=== PATIENT | male | born 1950 | race Two or more races ===

== ENCOUNTER 2021-10-27 10:08 | Emergency (ER) | payer OTHER ==
[~2021-10-27] VITALS: Ht 177.8 cm; Wt 150.6 kg
[2021-10-27 10:09] VITALS: BP 167/84
[2021-10-27] MEDS ORDERED: IBUP800T27 PO (11:39)
== END 2021-10-27 11:49 | disposition home or self-care (01) ==
LOC: ER 10:08
DX: M19.041 Primary osteoarthritis, right hand (principal); I11.0 Hypertensive heart disease with heart failure; I50.9 Heart failure, unspecified; Z90.49 Acquired absence of other specified parts of digestive tract; Z79.1 Long term (current) use of non-steroidal anti-inflammatories (NSAID)
CPT/HCPCS: 29125; 73130

== ENCOUNTER 2023-12-12 09:56 | Inpatient (IN) | payer OTHER ==
[~2023-12-12] VITALS: Ht 177.8 cm; Wt 137.7 kg
[2023-12-12] VITALS (10 sets, daily range): BP systolic 94–114; BP diastolic 48–61; PULSE 60–83; RESP 10–25; TEMP 98; O2SAT 2–97
[~2023-12-12 09:56] MED LIST: IBUP-1456 PO
[2023-12-12 10:30] LABS: Urine Bacteria None Seen /hpf (None Seen)
[2023-12-12 10:33] LABS: Basophils # (auto) 0.1 10 ^3/uL (0-0.2); Basophils % (auto) 0.6 % (0.0-2.0); Eosinophils # (auto) 0.1 10 ^3/uL (0-0.8); Eosinophils % (auto) 0.8 % (0.0-7.0); Hematocrit 47.4 % (41.0-53.0); Lymphocytes # (auto) 1.1 10 ^3/uL (0.4-5.4); Lymphocytes % (auto) 9.4 % (10.0-50.0); Mean Corpuscular Hemoglobin 30.2 pg (28.0-32.0); Mean Corpuscular Hgb Conc. 33.7 g/dL (32.0-36.0); Mean Corpuscular Volume 89.5 fL (80.0-100.0); Monocytes # (auto) 0.9 10 ^3/uL (0-1.3); Monocytes % (auto) 8.1 % (0.0-12.0); Neutrophils # (auto) 9.2 10 ^3/uL (1.6-8.6); Neutrophils % (auto) 81.1 % (37.0-80.0); Nucleated Red Blood Cells % 0.1 %; Red Cell Distribution Width 14.8 % (11.8-14.3); White Blood Cell 11.4 10^3/uL (4.4-10.8)
[2023-12-12 10:49] LABS: INR 1.04 (0.9-1.15); Partial Thromboplastin Time 24.5 SEC (24.5-34.5)
[2023-12-12 10:50] LABS: Urine Blood Negative /uL (Negative); Urine Clarity Clear (Clear); Urine Color Yellow (Yellow); Urine Hyaline Cast FEW /lpf (0 - 2); Urine Mucus FEW (None Seen); Urine Protein, UAD TRACE (Negative); Urine Specific Gravity 1.027 (1.001-1.035); Urine Urobilinogen 2 mg/dL (Negative); Urine WBC 1 /hpf (0 - 3); Urine pH 5.5 (5.0-9.0)
[2023-12-12 10:52] LABS: Alanine Aminotransferase 29 U/L (7-40); Alkaline Phosphatase 133 U/L (46-116); Anion Gap 7 (5-15); Aspartate Aminotransferase 44 U/L (13-40); BUN/Creatinine Ratio 10.8 (10.0-20.0); Blood Urea Nitrogen 8 mg/dL (9-23); Calcium 9.8 mg/dL (8.5-10.1); Carbon Dioxide 25 mmol/L (20-30); Chloride 106 mmol/L (98-107); Glucose 161 mg/dL (74-106); Magnesium 1.9 mg/dL (1.6-2.6); Potassium 3.9 mmol/L (3.5-5.1); Sodium 138 mmol/L (136-145)
[2023-12-12 10:53] LABS: Albumin 4.2 g/dL (3.2-4.8); Bilirubin, Total 0.6 mg/dL (0.2-1.0); Total Protein 6.7 g/dL (5.7-8.2)
[2023-12-12] MEDS: ASPirin 81 mg TAB PO ONE (11:07)
[2023-12-12] MEDS: HEPARIN SODIUM (PORCINE) 5000 UNITS/ML 1ML VIAL IV ONE (12:15)
[2023-12-12] MEDS: HEPARIN DRIP/D5W 100UNITS/ML 250 ML IV SCH (12:18)
[2023-12-12] MEDS ORDERED: NITROGLYCERIN 0.4 MG SL TAB SL PRN (14:00)
[2023-12-12] MEDS ORDERED: MORPHINE SULFATE INJ 2 MG/ml SYRG IV PRN (14:00)
[2023-12-12] MEDS: D5W/SOD CHLO 0.9% 1,000 ML IV SCH (14:00)
[2023-12-12] MEDS: ONDANSETRON HCL 4 MG/2 ML VIAL IV PRN (16:18)
[2023-12-12] MEDS: MORPHINE SULFATE INJ 2 MG/ml SYRG IV PRN (16:18)
[2023-12-12 19:16] LABS: INR 1.07 (0.9-1.15); Partial Thromboplastin Time 44.7 SEC (24.5-34.5); Prothrombin Time 11.3 sec (9.3-11.8)
[2023-12-12] MEDS: ANGIOMAX 250 MG VIAL IV ONE (19:59)
[2023-12-12] MEDS: VERAPAMIL 2.5MG/ML INJ 2ML VIAL IV ONE (19:59)
[2023-12-12] MEDS: SODIUM CHL 0.9% 50 ML ONE (20:00)
[2023-12-12] MEDS: fentaNYL CITRATE 100 MCG/2 ML VL ONE (20:00)
[2023-12-12] MEDS: MIDAZOLAM HCL 2MG/2ML 2ml VIAL (1mg/ml) ONE (20:00)
[2023-12-12] MEDS: IODIXANOL 320MG/ML 100ML BTL IV ONE ×2 (20:01→20:54)
[2023-12-12] MEDS: LIDOCAINE 2%HCL (LOCAL ANESTH.) INJ 20ML MDV ONE (20:01)
[2023-12-13] VITALS (28 sets, daily range): BP systolic 87–124; BP diastolic 39–71; PULSE 57–97; RESP 9–25; TEMP 97.2–98.3; O2SAT 92–98
[2023-12-13] MEDS: ACETAMINOPHEN 325 MG TAB PO PRN (02:07)
[2023-12-13 02:31] LABS: INR 1.04 (0.9-1.15); Partial Thromboplastin Time 34.9 SEC (24.5-34.5)
[2023-12-13] MEDS: HEPARIN SODIUM (PORCINE) 5000 UNITS/ML 1ML VIAL ONE (03:09)
[2023-12-13] MEDS ORDERED: HEPARIN DRIP/D5W 100UNITS/ML 250 ML IV SCH (03:15)
[2023-12-13 06:22] LABS: Basophils # (auto) 0.1 10 ^3/uL (0-0.2); Basophils % (auto) 0.7 % (0.0-2.0); Eosinophils # (auto) 0.1 10 ^3/uL (0-0.8); Eosinophils % (auto) 1.3 % (0.0-7.0); Hematocrit 41.2 % (41.0-53.0); Hemoglobin 13.9 g/dL (13.5-17.5); Lymphocytes % (auto) 23.7 % (10.0-50.0); Mean Corpuscular Hemoglobin 30.2 pg (28.0-32.0); Mean Corpuscular Hgb Conc. 33.6 g/dL (32.0-36.0); Mean Corpuscular Volume 89.9 fL (80.0-100.0); Monocytes # (auto) 1.1 10 ^3/uL (0-1.3); Monocytes % (auto) 12.9 % (0.0-12.0); Neutrophils # (auto) 5.2 10 ^3/uL (1.6-8.6); Neutrophils % (auto) 61.4 % (37.0-80.0); Nucleated Red Blood Cells % 0.1 %; Red Blood Cells 4.58 10^6/uL (4.5-5.90); Red Cell Distribution Width 14.4 % (11.8-14.3); White Blood Cell 8.5 10^3/uL (4.4-10.8)
[2023-12-13 06:24] LABS: Chloride 105 mmol/L (98-107); Potassium 3.7 mmol/L (3.5-5.1); Sodium 140 mmol/L (136-145)
[2023-12-13 06:25] LABS: Anion Gap 5 (5-15); Calcium 9.2 mg/dL (8.5-10.1); Carbon Dioxide 30 mmol/L (20-30)
[2023-12-13 06:30] LABS: BUN/Creatinine Ratio 13.8 (10.0-20.0); Blood Urea Nitrogen 11 mg/dL (9-23); Glucose 98 mg/dL (74-106)
[2023-12-13] MEDS: PANTOPRAZOLE 40 MG/10 ML VIAL INJ IV SCH (09:48)
[2023-12-13] MEDS: ASPirin-EC 81 mg tab PO SCH (09:48)
[2023-12-13 10:37] LABS: INR 1.08 (0.9-1.15); Prothrombin Time 11.4 sec (9.3-11.8)
[2023-12-13 10:41] LABS: Partial Thromboplastin Time 95.4 SEC (24.5-34.5)
[2023-12-13] MEDS: HEPARIN DRIP/D5W 100UNITS/ML 250 ML IV SCH (12:07)
[2023-12-13 18:34] LABS: INR 1.06 (0.9-1.15); Partial Thromboplastin Time 54.9 SEC (24.5-34.5); Prothrombin Time 11.2 sec (9.3-11.8)
[2023-12-13] MEDS: ATORVASTATIN 20 MG TAB PO SCH (21:46)
[2023-12-14] VITALS (21 sets, daily range): BP systolic 106–142; BP diastolic 55–88; PULSE 58–92; RESP 11–27; TEMP 97.7–99.1; O2SAT 93–99
[2023-12-14 02:42] LABS: Basophils # (auto) 0.1 10 ^3/uL (0-0.2); Basophils % (auto) 1.1 % (0.0-2.0); Eosinophils # (auto) 0.3 10 ^3/uL (0-0.8); Eosinophils % (auto) 4.3 % (0.0-7.0); Hematocrit 43.1 % (41.0-53.0); Hemoglobin 14.4 g/dL (13.5-17.5); Lymphocytes # (auto) 1.7 10 ^3/uL (0.4-5.4); Lymphocytes % (auto) 27.2 % (10.0-50.0); Mean Corpuscular Hemoglobin 30.2 pg (28.0-32.0); Mean Corpuscular Hgb Conc. 33.4 g/dL (32.0-36.0); Mean Corpuscular Volume 90.3 fL (80.0-100.0); Monocytes # (auto) 0.9 10 ^3/uL (0-1.3); Monocytes % (auto) 13.7 % (0.0-12.0); Neutrophils # (auto) 3.4 10 ^3/uL (1.6-8.6); Neutrophils % (auto) 53.7 % (37.0-80.0); Red Blood Cells 4.77 10^6/uL (4.5-5.90); Red Cell Distribution Width 14.9 % (11.8-14.3); White Blood Cell 6.3 10^3/uL (4.4-10.8)
[2023-12-14 08:32] LABS: INR 1.04 (0.9-1.15); Partial Thromboplastin Time 62.5 SEC (24.5-34.5)
[2023-12-14 16:41] LABS: INR 1.05 (0.9-1.15); Prothrombin Time 11.1 sec (9.3-11.8)
[2023-12-14] MEDS: ATORVASTATIN 20 MG TAB PO SCH (22:01)
[2023-12-14 22:20] LABS: INR 1.05 (0.9-1.15); Partial Thromboplastin Time 60.3 SEC (24.5-34.5); Prothrombin Time 11.1 sec (9.3-11.8)
[2023-12-15] VITALS (32 sets, daily range): BP systolic 111–146; BP diastolic 66–82; PULSE 63–89; RESP 6–27; TEMP 97.7–98.4; O2SAT 93–98
[2023-12-15 09:00] LABS: INR 1.05 (0.9-1.15); Partial Thromboplastin Time 67.2 SEC (24.5-34.5); Prothrombin Time 11.1 sec (9.3-11.8)
[2023-12-15 15:23] LABS: INR 1.08 (0.9-1.15); Partial Thromboplastin Time 65.1 SEC (24.5-34.5); Prothrombin Time 11.4 sec (9.3-11.8)
== END 2023-12-15 17:44 | disposition short-term general hospital (02) | DRG 282 ==
LOC: ER 09:56 → TELE 13:58 → DOU IN ICU 13:58
PROVIDERS: ADMIT Hospitalist; ATTEND Internal Medicine
PROC: B211YZZ Fluoroscopy of Multiple Coronary Arteries using Other Contrast (ICD-10-PCS; principal; 2023-12-12)
PROC: B410YZZ Fluoroscopy of Abdominal Aorta using Other Contrast (ICD-10-PCS; 2023-12-12)
PROC: 4A133B1 Monitoring of Arterial Pressure, Peripheral, Percutaneous Approach (ICD-10-PCS; 2023-12-12)
DX: I21.4 Non-ST elevation (NSTEMI) myocardial infarction (principal); I25.10 Atherosclerotic heart disease of native coronary artery without angina pectoris; I11.0 Hypertensive heart disease with heart failure; I50.9 Heart failure, unspecified; E03.9 Hypothyroidism, unspecified; K76.0 Fatty (change of) liver, not elsewhere classified; Z96.653 Presence of artificial knee joint, bilateral; Z98.84 Bariatric surgery status; Z90.49 Acquired absence of other specified parts of digestive tract; Z82.49 Family history of ischemic heart disease and other diseases of the circulatory system; Z79.1 Long term (current) use of non-steroidal anti-inflammatories (NSAID); Z79.899 Other long term (current) drug therapy; Z95.1 Presence of aortocoronary bypass graft
CPT/HCPCS: 36415; 71045; 80048; 80053; 81001; 83735; 83880; 84484; 85025; 85610; 85730; 87081; 93005; 93306; 96365; 96375; 99152; 99291; C9113; G0378; J2250; J2405; Q9967

== ENCOUNTER 2024-11-11 15:02 | Emergency (ER) | payer OTHER ==
[~2024-11-11] VITALS: Ht 177.8 cm; Wt 149.0 kg
--- NOTE | 2024-11-11 15:41 | ED.PDOC ---
Back pain HPI HPI Comments NEHA: 74y M who presents to the ED for chief complaint of back pain. - pt states he has been having lower back pain by the R posterior iliac crest with associated pain in the R lumbosacral area for the past 1 month - pt states the pain is constant, sharp in nature, non-radiating, with associated exacerbation of pain with movement and no relieving factors - pt has taken hydrocodone for the pain earlier this AM but states it has not helped - pt denies any associated fall or injury - pt states he had had this back pain in the past and states he currently has pain specialist who manages his pain - pt otherwise denies any other symptoms at this time PMH: NC, HTN, chronic back pain PSH: CABG, appendectomy, bilateral hand surgeries allergies: nkda medications: plavix, eliquis, amiodarone, hydrocodone social history: denies ETOH use, denies tobacco use, denies drug use HPI: Poor Historian. Acute on chronic low back pain worse in the last few days. Past Medical History: Past Surgical History: REVIEW OF SYSTEMS: CONSTITUTIONAL: Denies acute: fever, diaphoresis, chills, generalized weakness. HEAD: Denies acute: headache, photophobia Eyes: Denies acute: Double vision, vision loss, eye pain, eye discharge. EARS: Denies acute: tinnitus, hearing loss, ear discharge, ear pain, THROAT: Denies acute: sore throat, swelling, difficulty swallowing , pain with swallowing, change in voice. NECK: Denies acute: neck pain, neck swelling, stiff neck. HEART: Denies acute : chest pain, palpitations, LUNGS: Denies acute: SOB, wheezing, cough, hemoptysis ABDOMEN: Denies acute: abdominal pain, Nausea, Vomiting, diarrhea, melena , hematemesis, hematochezia SKIN: Denies acute: rash, redness, lesions, itchiness. EXTREMITIES: Denies acute: calf pain, numbness, tingling, weakness, denies pain in extremity. Neuro: Denies acute: focal neurological deficit, motor or sensory focal neurological deficit, tremors, seizure like activity, confusion, dizziness, change in mental status, loss of bowel or bladder function, cauda equina like symptoms. : Denies acute: dysuria, hematuria, flank pain, increase in urinary frequency. PSYCH: Denies acute: hallucination, suicidal ideation, homicidal ideation. PHYSICAL EXAM: General: ---[id number]-----acute distress, awake and alert. Head: normocephalic, atraumatic. Neck: supple, trachea is midline, no swelling. Throat: Normal phonation. Eyes:, no erythema, no purulent discharge, no proptosis, no icterus. Heart: regular rate, regular rhythm, no significant murmur appreciated. Lungs: no apparent respiratory distress, Able to speak in full sentences. No wheezing, no rhonchi, no crackles. No stridors Clear to auscultation bilaterally. Abdomen: non tender to palpation, non distended, soft, no guarding, no rebound, + bowel sounds. Morbidly obese Neuro: Awake, Alert, oriented to name, self, situation, follows commands GCS=15. Speech is normal. Skin: no petechia, no purpura, no cyanosis, non-pale, not jaundice. Lower extremities: --no - Pitting edema no deformity, no focal swelling, no calf TTP. Makes eye contact. moves all four extremities. Evaluation of the area of pain: Patient points exactly to one focal region of the right lumbosacral/posterior iliac crest region that is tender to palpation. No swelling or erythema noted. Pain is worse with movement. Denies any cauda equina like symptoms. Face: no apparent facial droop. No CVA tenderness to percussion bilaterally. No nystagmus. No nuchal rigidity, Kernig's sign, Brudzinski's sign, no meningeal signs. ED COURSE: Time Seen by MD: 15:05 Primary Care Provider: [facility] Reviewed Notes: Nurses Notes, Allergies Allergies: Coded Allergies: NO KNOWN ALLERGIES (Unverified , 12/12/23) Home Meds Active Scripts Ibuprofen (Ibuprofen) 800 Mg Tab, 800 MG PO TID PRN, #30 TAB Prov:EVARISTO RODRIGUEZ 10/27/21 Information Source: Patient Mode of Arrival: Wheelchair Past Medical History PAST MEDICAL HISTORY: Cancer, CHF, HTN, Thyroid Surgical History: Appendectomy, Cholecystectomy Family History Family History: Reviewed,noncontributory to illness Social History Smoker: Non-Smoker Alcohol: Other Drugs: Denies Drug Use Lives In: Home Was a procedure done? Was a procedure done?: No Back Pain Differential Dx Differential Diagnosis: Other (DDX included but not limited to Cauda Equina syndrome, lumbar radiculopathy, arthritis, disk herniation, sciatica, muscle strain, epidural abscess, transverse myelitis. Cord compression, spinal foraminal stenosis, spinal fractures, spondylosis, central canal stenosis, trauma, muscle sprain/strain, aneurysm/dissection, kidney stones, shingles, arthritis, Guillan Shiro, neoplasm.) X-Ray, Labs, Meds, VS Vital Signs Date Time Temp Pulse Resp B/P (MAP) Pulse Ox O2 Delivery O2 Flow Rate FiO2 11/11/24 21:30 98.3 63 16 141/67 (91) 100 98.3 11/11/24 21:30 63 16 100 Room Air* 0 21 11/11/24 15:30 98.6 65 20 118/56 (76) 97 98.6 Lab Test 11/11/24 18:43 11/11/24 17:11 11/11/24 16:08 11/11/24 15:40 Range/Units Lactic Acid Level 1.5 2.4 *H 0.4-2.0 mmol/L Troponin I High Sensitivity 5 5 5 </=54 ng/L White Blood Count 5.9 4.4-10.8 10^3/uL Red Blood Count 5.37 4.5-5.90 10^6/uL Hemoglobin 11.6 L 13.5-17.5 g/dL Hematocrit 37.0 L 41.0-53.0 % Mean Corpuscular Volume 68.9 L 80.0-100.0 fL Mean Corpuscular Hemoglobin 21.6 L 28.0-32.0 pg Mean Corpuscular Hemoglobin Concent 31.4 L 32.0-36.0 g/dL Red Cell Distribution Width 20.7 H 11.8-14.3 % Platelet Count 285 140-450 10^3/uL Mean Platelet Volume 7.6 6.9-10.8 fL Neutrophils (%) (Auto) 60.7 37.0-80.0 % Lymphocytes (%) (Auto) 20.1 10.0-50.0 % Monocytes (%) (Auto) 14.3 H 0.0-12.0 % Eosinophils (%) (Auto) 3.5 0.0-7.0 % Basophils (%) (Auto) 1.4 0.0-2.0 % Neutrophils # (Auto) 3.6 1.6-8.6 10 ^3/uL Lymphocytes # (Auto) 1.2 0.4-5.4 10 ^3/uL Monocytes # (Auto) 0.8 0-1.3 10 ^3/uL Eosinophils # (Auto) 0.2 0-0.8 10 ^3/uL Basophils # (Auto) 0.1 0-0.2 10 ^3/uL Nucleated Red Blood Cells 0.1 % Sodium Level 145 136-145 mmol/L Potassium Level 4.5 3.5-5.1 mmol/L Chloride Level 107 98-107 mmol/L Carbon Dioxide Level 27 20-31 mmol/L Anion Gap 11 5-15 Blood Urea Nitrogen 18 9-23 mg/dL Creatinine 1.18 0.700-1.30 mg/dL Glomerular Filtration Rate Calc 65 >90 mL/min BUN/Creatinine Ratio 15.3 10.0-20.0 Serum Glucose 105 74-106 mg/dL Calcium Level 9.4 8.7-10.4 mg/dL Total Bilirubin 0.4 0.2-1.0 mg/dL Aspartate Amino Transferase (AST) 21 13-40 U/L Alanine Aminotransferase (ALT) 23 7-40 U/L Alkaline Phosphatase 162 H 46-116 U/L B-Type Natriuretic Peptide 288.27 0-100 pg/mL Total Protein 6.7 5.7-8.2 g/dL Albumin 4.4 3.2-4.8 g/dL Urine Color Yellow Yellow Urine Clarity Clear Clear Urine pH 6.5 5.0-9.0 Urine Specific [place] 1.027 1.001-1.035 Urine Protein Trace H Negative Urine Ketones Negative Negative Urine Blood Negative Negative /uL Urine Nitrite Negative Negative Urine Bilirubin Negative Negative Urine Urobilinogen 4 H Negative mg/dL Urine Leukocyte Esterase Negative Negative /uL Urine RBC 5 0 - 3 /hpf Urine Microscopic WBC 4 H 0-3 /HPF Urine Squamous Epithelial Cells Few <5 /hpf Urine Bacteria None seen None Seen /hpf Urine Glucose Normal Normal mg/dL Current Medications Medications (Trade) Dose Ordered Sig/Reji Route Start Time Stop Time Status Last Admin Dexamethasone Sodium Phosphate (Decadron Injection) 20 mg ONCE ONCE IV 11/11/24 17:15 11/11/24 17:22 DC 11/11/24 21:38 Acetaminophen/ Hydrocodone Bitart ([place] 5/325MG Tab) 1 tab ONCE ONCE PO 11/11/24 17:15 11/11/24 17:22 DC 11/11/24 21:38 Ketorolac Tromethamine (Toradol Injection) 30 mg ONCE ONCE IV 11/11/24 17:15 11/11/24 17:22 DC 11/11/24 21:37 [place] [address] Ph: [phone] DIAGNOSTIC IMAGING Diagnostic Imaging Report : [id number] Signed PATIENT: ANGEL SOLOMON ACCT: [id number] UNIT: [id number] : 1950 LOC: ER ROOM / BED: / AGE / SEX: 74 / M ADM STATUS: REG ER SERVICE 1524 ORDERING PHYSICIAN: MARLO SANTIAGO DO PROCEDURE(s): ABPL - CT AB PEL WO CON-NO ORAL OR IV REASON: r flank pain ORDER NUMBER(s): [id number], ACCESSION NUMBER(s): [id number] Exam: CT CT AB PEL WO CON-NO ORAL OR IV History: r flank pain Comparison Study: None available at time of dictation. TECHNIQUE: Multidetector CT of the abdomen was performed from lung bases to pubic symphysis. Imaging was performed without IV contrast. Axial, coronal and sagittal multiplanar reformats were obtained from the axial data set by the technologist. Radiation Dose Information: CT Dose: CTDI volume is 27.5 mGy. Dose-length product is 1841.96 mGy*cm FINDINGS: Evaluation of solid organs is limited due to lack of intravenous contrast use. Findings: Lung Bases: No acute or significant lung base finding. Normal heart size. No pleural or pericardial effusion. Liver: The liver is normal in size. No focal lesions. Gallbladder and Biliary Tree: Unremarkable Spleen: Unremarkable Pancreas: The pancreas is grossly normal in appearance. Adrenal Glands: Unremarkable Kidneys: 6 cm hypodense mass upper pole right kidney with CT tissue density of - 27 Hounsfield units may represent an angiomyolipoma. Consider repeat study with IV contrast or MRI. Punctate nonobstructing calculus lower pole right kidney Bladder: Grossly unremarkable for degree of distention. Bowel: The stomach is grossly normal in appearance. Small bowel and colon are normal in caliber and distribution. The appendix is not visualized; however, no secondary findings of acute appendicitis identified. Ascites: Absent Lymphadenopathy: No mesenteric, retroperitoneal or periportal lymphadenopathy. Abdominal Wall and Mesentery: Unremarkable. Vasculature: The visualized abdominal aorta is normal in size and caliber. Evaluation of abdominal and pelvic vessels is limited due to lack of intravenous contrast. Pelvic Organs: Unremarkable Musculoskeletal: No aggressive focal bony lesions, acute fractures or dislocation. Soft tissues: Unremarkable IMPRESSION: 1. 6 cm hypodense mass upper pole right kidney with CT numbers of -23 and -29 Hounsfield units. May represent an angiomyolipoma. Consider repeat study with IV contrast or MRI. Radiation optimization: All CT scans at this facility use at least one of these dose optimization techniques: automated exposure control mA and/or kV adjustment per patient size (includes targeted exams where dose is matched to clinical indication) or iterative reconstruction. ATED BY: RAMILA SON Jr., DO DICTATED DATE/TIME: 11/11/241631 SIGNED BY: RAMILA SON Jr., SIGNED DATE/TIME: 11/11/241631 CC: Time of 1ST Reevaluation: 22:09 (Patient able to stand and his pain has resolved after medication intervention. He typically ambulates with a walker.) Reevaluation 1ST: Resolved Patient Education/Counseling: Diagnosis, Treatment Family Education/Counseling: No Family Present Comments Patient presented with the above HPI.--low back pain----workup was initiated. patient was found with the above mentioned diagnosis. the following medications were ordered: please refer to order lists of meds and tests obtained by myself Dr. Santiago. Patient ED course and VS have been stabilized. Patient has been reassessed in the ED and remained in a stable condition. Pertinent incidental findings were discussed with the patient and/or family. Patient/family voices understanding and is agreeable with plan. Patient has been observed in the ED adequate length of time to insure improvement/stability. Escalation of care considered: Consideration of escalation to observation or admission Patient was DISCHARGED home in a stable condition. All the reports of any imaging studies that were ordered by myself were reviewed by myself. Departure 1 Departure Time of Disposition: 22:09 Impression: Primary Impression: Low back pain Additional Impression: Abnormal finding on CT scan Disposition: HOME / SELF CARE / HOMELESS Condition: Stable Additional Instructions: Additional instructions: You MUST follow-up with your primary care/family doctor in 1 to 2 days. If you are unable to see your primary care/family doctor, please return to our emergency room for re-assessment and re-evaluation in 1 to 2 days. Return to the emergency room here in our facility or to the nearest ER [facility] if your symptoms change or worsen. CONSULTATIONS: you MUST Follow-up for consultation as soon as possible with: Dr.-spine doctor and pain management doctor in 1-2 days. Please call for appointment. You MUST call the consultants office yourself to make an appointment. You may need to arrange that through your insurance and/or your primary/family doctor. If you are unable to see the customer service sales consultant in 1 to 2 days, you must return to our emergency room (or any other ER of your choice) for re-assessment and re- evaluation. Adequate fluid hydration. You said you have an appointment with a pain management doctor next week. Below is a copy of your radiological report for follow up: [place] [address] Ph: [phone] DIAGNOSTIC IMAGING Diagnostic Imaging Report : [id number] Signed PATIENT: ANGEL SOLOMON ACCT: [id number] UNIT: [id number] : 1950 LOC: ER ROOM / BED: / AGE / SEX: 74 / M ADM STATUS: REG ER SERVICE 1524 ORDERING PHYSICIAN: MARLO SANTIAGO DO PROCEDURE(s): ABPL - CT AB PEL WO CON-NO ORAL OR IV REASON: r flank pain ORDER NUMBER(s): [id number], ACCESSION NUMBER(s): [id number] Exam: CT CT AB PEL WO CON-NO ORAL OR IV History: r flank pain Comparison Study: None available at time of dictation. TECHNIQUE: Multidetector CT of the abdomen was performed from lung bases to pubic symphysis. Imaging was performed without IV contrast. Axial, coronal and sagittal multiplanar reformats were obtained from the axial data set by the technologist. Radiation Dose Information: CT Dose: CTDI volume is 27.5 mGy. Dose-length product is 1841.96 mGy*cm FINDINGS: Evaluation of solid organs is limited due to lack of intravenous contrast use. Findings: Lung Bases: No acute or significant lung base finding. Normal heart size. No pleural or pericardial effusion. Liver: The liver is normal in size. No focal lesions. Gallbladder and Biliary Tree: Unremarkable Spleen: Unremarkable Pancreas: The pancreas is grossly normal in appearance. Adrenal Glands: Unremarkable Kidneys: 6 cm hypodense mass upper pole right kidney with CT tissue density of - 27 Hounsfield units may represent an angiomyolipoma. Consider repeat study with IV contrast or MRI. Punctate nonobstructing calculus lower pole right kidney Bladder: Grossly unremarkable for degree of distention. Bowel: The stomach is grossly normal in appearance. Small bowel and colon are normal in caliber and distribution. The appendix is not visualized; however, no secondary findings of acute appendicitis identified. Ascites: Absent Lymphadenopathy: No mesenteric, retroperitoneal or periportal lymphadenopathy. Abdominal Wall and Mesentery: Unremarkable. Vasculature: The visualized abdominal aorta is normal in size and caliber. Evaluation of abdominal and pelvic vessels is limited due to lack of intravenous contrast. Pelvic Organs: Unremarkable Musculoskeletal: No aggressive focal bony lesions, acute fractures or dislocation. Soft tissues: Unremarkable IMPRESSION: 1. 6 cm hypodense mass upper pole right kidney with CT numbers of -23 and -29 Hounsfield units. May represent an angiomyolipoma. Consider repeat study with IV contrast or MRI. Radiation optimization: All CT scans at this facility use at least one of these dose optimization techniques: automated exposure control mA and/or kV adjustment per patient size (includes targeted exams where dose is matched to clinical indication) or iterative reconstruction. ATED BY: RAMILA SON Jr., DO DICTATED DATE/TIME: 11/11/241631 SIGNED BY: RAMILA SON Jr., DO SIGNED DATE/TIME: 11/11/241631 CC: Discharged With: Self Critical Care Note Critical Care Time?: No I personally scribed for MARLO SANTIAGO DO ([facility]) on 11/11/24 at 15:41. Electronically submitted by Laurita Kearns ([facility] I personally scribed for MARLO SANTIAGO DO ([facility]) on 11/11/24 at 15:53. Electronically submitted by Laurita Kearns ([facility] I personally scribed for MARLO SANTIAGO DO ([facility]) on 11/11/24 at 21:01. Electronically submitted by Laurita Kearns ([facility] I personally scribed for MARLO SANTIAGO DO ([facility]) on 11/11/24 at 21:56. Electronically submitted by Laurita Kearns ([facility] MARLO SANTIAGO DO November 11, 2024 15:41
[2024-11-11 16:22] LABS: Basophils # (auto) 0.1 10 ^3/uL (0-0.2); Eosinophils # (auto) 0.2 10 ^3/uL (0-0.8); Lymphocytes # (auto) 1.2 10 ^3/uL (0.4-5.4); Mean Corpuscular Hemoglobin 21.6 pg (28.0-32.0); Monocytes # (auto) 0.8 10 ^3/uL (0-1.3); Neutrophils # (auto) 3.6 10 ^3/uL (1.6-8.6); White Blood Cell 5.9 10^3/uL (4.4-10.8)
[2024-11-11 16:24] LABS: Basophils % (auto) 1.4 % (0.0-2.0); Eosinophils % (auto) 3.5 % (0.0-7.0); Hemoglobin 11.6 g/dL (13.5-17.5); Lymphocytes % (auto) 20.1 % (10.0-50.0); Mean Corpuscular Hgb Conc. 31.4 g/dL (32.0-36.0); Mean Corpuscular Volume 68.9 fL (80.0-100.0); Monocytes % (auto) 14.3 % (0.0-12.0); Neutrophils % (auto) 60.7 % (37.0-80.0); Nucleated Red Blood Cells % 0.1 %; Platelet Count (auto) 285 10^3/uL (140-450); Red Blood Cells 5.37 10^6/uL (4.5-5.90)
[2024-11-11 16:26] LABS: Red Cell Distribution Width 20.7 % (11.8-14.3)
--- NOTE | 2024-11-11 16:35 | DVH ---
Exam: CT CT AB PEL WO CON-NO ORAL OR IV History: r flank pain Comparison Study: None available at time of dictation. TECHNIQUE: Multidetector CT of the abdomen was performed from lung bases to pubic symphysis. Imaging was performed without IV contrast. Axial, coronal and sagittal multiplanar reformats were obtained fr om the axial data set by the technologist. Radiation Dose Information: CT Dose: CTDI volume is 27.5 mGy. Dose-length product is 1841.96 mGy*cm FINDINGS: Evaluation of solid organs is limited due to lack of intravenous contrast use. Findings: Lung Bases: No acute or significant lung base finding. Normal heart size. No pleural or pericardial effusion. Liver: The liver is normal in size. No focal lesions. Gallbladder and Biliary Tree: Unremarkable Spleen: Unremarkable Pancreas: The pancreas is grossly normal in appearance. Adrenal Glands: Unremarkable Kidneys: 6 cm hypodense mass upper pole right kidney with CT tissue density of -27 Hounsfield units m ay represent an angiomyolipoma. Consider repeat study with IV contrast or MRI. Punctate nonobstructin g calculus lower pole right kidney Bladder: Grossly unremarkable for degree of distention. Bowel: The stomach is grossly normal in appearance. Small bowel and colon are normal in caliber and d istribution. The appendix is not visualized; however, no secondary findings of acute appendicitis id entified. Ascites: Absent Lymphadenopathy: No mesenteric, retroperitoneal or periportal lymphadenopathy. Abdominal Wall and Mesentery: Unremarkable. Vasculature: The visualized abdominal aorta is normal in size and caliber. Evaluation of abdominal a nd pelvic vessels is limited due to lack of intravenous contrast. Pelvic Organs: Unremarkable Musculoskeletal: No aggressive focal bony lesions, acute fractures or dislocation. Soft tissues: Unremarkable IMPRESSION: 1. 6 cm hypodense mass upper pole right kidney with CT numbers of -23 and -29 Hounsfield units. May represent an angiomyolipoma. Consider repeat study with IV contrast or MRI. Radiation optimization: All CT scans at this facility use at least one of these dose optimization donna hniques: automated exposure control mA and/or kV adjustment per patient size (includes targeted exam s where dose is matched to clinical indication) or iterative reconstruction.
[2024-11-11 16:38] LABS: Alanine Aminotransferase 23 U/L (7-40); Albumin 4.4 g/dL (3.2-4.8); Anion Gap 11 (5-15); Aspartate Aminotransferase 21 U/L (13-40); BUN/Creatinine Ratio 15.3 (10.0-20.0); Blood Urea Nitrogen 18 mg/dL (9-23); Calcium 9.4 mg/dL (8.7-10.4); Carbon Dioxide 27 mmol/L (20-31); Glucose 105 mg/dL (74-106); Potassium 4.5 mmol/L (3.5-5.1); Sodium 145 mmol/L (136-145); Total Protein 6.7 g/dL (5.7-8.2)
[2024-11-11 16:39] LABS: Alkaline Phosphatase 162 U/L (46-116); Bilirubin, Total 0.4 mg/dL (0.2-1.0); Chloride 107 mmol/L (98-107)
[2024-11-11 17:04] LABS: Lactic Acid w/Reflex 2.4 mmol/L (0.4-2.0)
[2024-11-11 17:12] LABS: Urine Bacteria None Seen /hpf (None Seen)
[2024-11-11 17:24] LABS: Urine Blood Negative /uL (Negative); Urine Clarity Clear (Clear); Urine Color Yellow (Yellow); Urine Protein, UAD TRACE (Negative); Urine Specific Gravity 1.027 (1.001-1.035); Urine Squamous Epithelial Cell FEW /hpf (<5); Urine Urobilinogen 4 mg/dL (Negative); Urine WBC 4 /HPF (0-3); Urine pH 6.5 (5.0-9.0)
[2024-11-11 21:30] VITALS: BP 141/67; PULSE 63; RESP 16; TEMP 98.3; O2SAT 100
[2024-11-11] MEDS: KETOROLAC TROMETH 30 MG/ML 1ML VIAL IV ONE (21:37)
[2024-11-11] MEDS: DexAMETHasone SOD PHOS 10MG/1ML VIAL INJ IV ONE (21:38)
[2024-11-11] MEDS: HYDROcodone-ACET 5/325MG TAB PO ONE (21:38)
== END 2024-11-11 22:10 | disposition home or self-care (01) ==
LOC: ER 15:16
DX: M54.50 Low back pain, unspecified (principal); R93.89 Abnormal findings on diagnostic imaging of other specified body structures; I11.0 Hypertensive heart disease with heart failure; I50.9 Heart failure, unspecified; Z85.9 Personal history of malignant neoplasm, unspecified; Z90.49 Acquired absence of other specified parts of digestive tract; Z79.1 Long term (current) use of non-steroidal anti-inflammatories (NSAID)
CPT/HCPCS: 36415; 74176; 80053; 81001; 83605; 83880; 84484; 85025; 96374; 96375; 99285; J1100; J1885